=== PATIENT | female | born 1985 ===

== ENCOUNTER 2018-10-18 08:45 | Inpatient (IN) | payer OTHER ==
[2018-10-18] MEDS ORDERED: AMPICILLIN - 2 GM in SODIUM CHLORIDE 100 ML IVPB ONE (09:00)
--- NOTE | 2018-10-18 09:00 | HP ---
Past Medical History - Admission Chief Complaint: Cholestasis History of Present Illness: 33yo @ 36.6wks here for IOL for cholestasis- diagnosed 10/08 after labs showed elevated bile acids (24), elevated LFTs- patient noted pruritis of her hands and feet. Today no VB/LOF. No ctx. +FM. 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: Alzheimer's, CVA, Dementia, Migraine, Multiple Sclerosis, Peripheral Neuropathy, Parkinson's, Seizure, Syncope, TIA, Vertigo, Other Cardiovascular: No: AFIB, Aneurysm, Aortic Insufficiency, Aortic Stenosis, CAD, CHF, Deep Vein Thrombosis, HTN, Hyperlipdemia, MN, Mitral Insufficiency, Mitral Stenosis, Murmur, Pulmonary Hypertension, Other Pulmonary: No: Asthma, Bronchitis, Cancer, COPD, O2 Dependent, Pneumonia, Previously Intubated, Pulmonary Embolus, Pulmonary Fibrosis, Sleep Apnea, Other Gastrointestinal: No: Ascites, Cancer, Constipation, Crohn's Disease, Diverticulitis, Diverticulosis, Esophageal Varices, Gastritis, GERD, GI Bleed, Hemorrhoids, Hiatal Hernia, Inflamatory Bowel Disease, Irritable Bowel Disease, Pancreatitis, Peptic Ulcer Disease, Ulcerative Colitis, Other Hepatobiliary: No: Cirrhosis, Cholelithiasis, Cholecystitis, Choledocholithiasis , Hepatitis A, Hepatitis B, Hepatitis C, Other Renal/: No: Renal Failure, Renal Inusuff, BPH, Cancer, Hematuria, Hemodialysis , Neurogenic Bladder, Renal Calculi, UTI, Other Reproductive: No: Ectopic , Endometriosis, Fibroids, PID, Polycystic Ovary Syndrome, Postmenopausal, Other ...: 2 ...Para: 1 ...Term: 1 ...: 0 ... Weeks Gestation by Dates: 36.6 Heme/Onc: Yes: Anemia - Past Surgical History Past Surgical History: Yes: None Hx Myomectomy: No Hx Transabdominal Cerclage: No - Smoking History Smoking history: Never smoked Have you smoked in the past 12 months: No - Alcohol/Substance Use Hx Alcohol Use: No History of Substance Use: reports: None - Social History Usual Living Arrangement: Yes: With Spouse ADL: Independent History of Recent Travel: No Home Medications - Allergies Allergies/Adverse Reactions: Allergies Allergy/AdvReac Type Severity Reaction Status Date / Time No Known Allergies Allergy Verified 09/26/18 08:33 Physical Exam - Maternity Constitutional: Yes: Well Nourished, No Distress, Calm Eyes: Yes: WNL, Conjunctiva Clear, EOM Intact HENT: Yes: WNL, Atraumatic, Normocephalic Neck: Yes: WNL, Supple, Trachea Midline Cardiovascular: Yes: WNL, Regular Rate and Rhythm Breast(s): Yes: WNL - Abdominal Exam/OB Contractions: No Monitor Mode: External Heart Rate Location: [facility] Category: I Accelerations: Non-Uniform Decelerations: None - Vaginal Exam/OB Vaginal Bleediing: No Speculum Exam: No Dilatation (cm): 1 Effacement (%): 0 Amniotic Membrane Status: Intact Station: -3 - Physical Exam Edema: No Assessment/Plan 33yo @ 36.6wks here for IOL for cholestasis (8/ bile acids 24) Admit to L&D Cat I tracing Amp for GBS positive (urine) Durant bulb, AROM/pitocin augmentation Anticipate ERICKA Price MD
[2018-10-18 09:40] LABS: BASO % 0.8 % (0-2.0); HEMATOCRIT 31.5 % (32.4-45.2); HEMOGLOBIN 10.6 GM/dL (10.7-15.3); MCHC 33.7 g/dl (32.0-36.0); MEAN CELL VOLUME 86.2 fl (80-96); MEAN PLT VOLUME 8.4 fl (7.5-11.1); MONO % 4.6 % (3.8-10.2); NEUT % 65.6 % (42.8-82.8); PLATELET COUNT 291 K/MM3 (134-434); RBC 3.65 M/mm3 (3.60-5.2); RDW 14.5 % (11.6-15.6); WHITE BLOOD COUNT 4.8 K/mm3 (4.0-10.0)
[2018-10-18] MEDS ORDERED: AMPICILLIN SODIUM 2 GM VIAL ONE (09:51)
[2018-10-18] MEDS: DEXTROSE 5%-LACTATED RINGERS 1,000 ML IV SCH ×2 (09:55→18:45)
[2018-10-18 10:02] LABS: BLOOD UREA NITROGEN 8.8 mg/dL (7-18); CALCIUM 8.5 mg/dL (8.5-10.1); CREATININE 0.7 mg/dL (0.55-1.3); POTASSIUM 3.8 mmol/L (3.5-5.1)
[2018-10-18 10:06] LABS: INR 0.92 (0.83-1.09); PROTHROMBIN TIME (PATIENT) 10.9 SEC (9.7-13.0)
[2018-10-18 10:09] LABS: ACTIVATED PTT 27.5 SECONDS (25.2-36.5)
[2018-10-18] MEDS: OXYTOCIN 30 UNITS in 0.9% NS 30 UNIT/500 ML INFUS.BAG IVPB SCH (10:10)
--- NOTE | 2018-10-18 10:15 | PN ---
Progress Note (short form) - Note Progress Note: Durant bulb placed, 30cc. Long/1/-3 Start pitocin Cat Nataliia Price MD
[2018-10-18 10:36] VITALS: BMI 26.9
[2018-10-18] MEDS ORDERED: AMPICILLIN SODIUM 1 GM VIAL ONE ×3 (13:22→20:50)
[2018-10-18] MEDS: AMPICILLIN - 1 GM in SODIUM CHLORIDE 100 ML IVPB SCH ×3 (13:25→21:00)
--- NOTE | 2018-10-18 18:30 | PN ---
Ante-Partal Exam - Subjective Subjective: Patient is comfortable, desires to eat dinner. Risks and complications of induction of labor reiterated. All questions answered. Vital Signs: Vital Signs Temperature 98.2 F 10/18/18 12:00 Pulse Rate 53 L 10/18/18 17:00 Respiratory Rate 18 10/18/18 17:00 Blood Pressure 115/64 10/18/18 17:00 O2 Sat by Pulse Oximetry (%) Bleeding: No Headache: No Visual changes: No Right upper quadrant pain: No - Contractions Contractions: Yes Regularity: Regular Intensity: Unaware Monitor Mode: External - Exam during Labor Category: I Monitor Accelerations: Present Monitor Decelerations: None Exam: Vaginal Dilatation (cm): 3 Effacement (%): 20 Amniotic Membrane Status: Intact Presentation: Vertex (bedside sono performed, OP) Station: -3 Remarks: firm, midline. smith score is 3 - Assessment/Plan Assessment/Plan: 33 y/o @ 36.4wks, cholestasis of , reassuring status, S/P > 8 hrs of pitocin and cervical lopez. Patient is comfortable. -D/C pit -Dinner -Re-evaluate for cervical ripening
[2018-10-18] MEDS ORDERED: DINOPROSTONE 10 MG VAGINAL SUPPOSITORY VG ONE (19:55)
--- NOTE | 2018-10-18 20:37 | PN ---
Ante-Partal Exam - Subjective Subjective: Patient is doing well, not desiring pain control Vital Signs: Vital Signs Temperature 98.8 F 10/18/18 19:00 Pulse Rate 60 10/18/18 19:00 Respiratory Rate 18 10/18/18 19:00 Blood Pressure 102/63 10/18/18 19:00 O2 Sat by Pulse Oximetry (%) Bleeding: No Headache: No Visual changes: No Right upper quadrant pain: No - Contractions Contractions: Yes Regularity: Irregular Monitor Mode: External - Exam during Labor Heart Rate: 150 (reactive) Category: I Monitor Accelerations: Present Monitor Decelerations: None Exam: Vaginal (cervidil place in vaginal vault) Dilatation (cm): 3 Effacement (%): 30 Station: -3 - Assessment/Plan Assessment/Plan: IOL due to cholestasis of . -Cervidil in place -Continue management plan
[2018-10-18] MEDS ORDERED: SODIUM CHLORIDE 100 ML IVPB ONE (20:50)
[2018-10-19] MEDS: AMPICILLIN - 1 GM in SODIUM CHLORIDE 100 ML IVPB SCH ×5 (01:00→17:30)
[2018-10-19] MEDS ORDERED: AMPICILLIN SODIUM 1 GM VIAL ONE ×5 (01:48→16:56)
[2018-10-19] MEDS ORDERED: SODIUM CHLORIDE 100 ML IVPB ONE ×2 (01:48→04:50)
[2018-10-19] MEDS: DEXTROSE 5%-LACTATED RINGERS 1,000 ML IV SCH ×2 (03:30→11:30)
--- NOTE | 2018-10-19 08:35 | PN ---
Ante-Partal Exam - Subjective Subjective: Patient reports feeling mild cramping Vital Signs: Vital Signs Temperature 98.5 F 10/19/18 07:00 Pulse Rate 71 10/19/18 07:00 Respiratory Rate 18 10/19/18 07:00 Blood Pressure 109/60 10/19/18 07:00 O2 Sat by Pulse Oximetry (%) Bleeding: No Headache: No Visual changes: No Right upper quadrant pain: No - Contractions Contractions: Yes Regularity: Irregular Monitor Mode: External - Exam during Labor Category: I Monitor Accelerations: Present Monitor Decelerations: None Exam: Vaginal (cervidil removed and new on placed in vaginal vault, cervix is anterior) Dilatation (cm): 3 Effacement (%): 30 Amniotic Membrane Status: Intact Presentation: Vertex Station: -3 - Assessment/Plan Assessment/Plan: 33 y/o P1 @ 36.5wks, induction of labor due to cholestasis of , S/P cervical balloon and pitocin, Cervidil removed and replaced. Reassuring status and stable maternal condition. -Continue induction -patient signed out to covering [facility] attending
[2018-10-19] MEDS ORDERED: DINOPROSTONE 10 MG VAGINAL SUPPOSITORY VG ONE (08:47)
[2018-10-19] MEDS ORDERED: GENTAMICIN SO4 80 MG/2 ML VIAL ONE (12:29)
[2018-10-19] MEDS ORDERED: ACETAMINOPHEN 325 MG TABLET (FP) ONE (12:29)
[2018-10-19] MEDS: GENTAMICIN 80 MG PREMIXED IVPB 80 MG/100 ML BAG IVPB SCH ×2 (12:35→17:00)
--- NOTE | 2018-10-19 13:40 | PN ---
Progress Note (short form) - Note Progress Note: 12 20 pm , cx 4 cm 80 vx -1 , temp 100.1 arom, clear fhr 160, cat 1, on ampicillin, gentamycin added
[2018-10-19] MEDS ORDERED: ACETAMINOPHEN 325 MG TABLET (FP) PO PRN ×2 (13:45→18:17)
[2018-10-19] MEDS: OXYTOCIN 30 UNITS in 0.9% NS 30 UNIT/500 ML INFUS.BAG IVPB SCH (14:05)
[2018-10-19] MEDS ORDERED: BUTORPHANOL TARTRATE 1 MG/ML VIAL ONE ×2 (15:40)
[2018-10-19] MEDS ORDERED: PROMETHAZINE HCL 25 MG/1 ML VIAL ONE (15:40)
[2018-10-19] MEDS ORDERED: BUTORPHANOL TARTRATE 2 MG/ML VIAL IVPB ONE (16:00)
[2018-10-19] MEDS ORDERED: PROMETHAZINE HCL 25 MG/1 ML VIAL IVPB ONE (16:00)
--- NOTE | 2018-10-19 16:55 | PN ---
Progress Note (short form) - Note Progress Note: cx 8 cm, 100 vx 0, mr, fhr cat 1, anticipate vaginal delivery soon afebrile
[2018-10-19] MEDS ORDERED: OXYTOCIN 20 UNITS in 0.9% NS 20 UNIT/1,000 ML INFUS.BAG IV ONE (17:43)
[2018-10-19] MEDS ORDERED: LIDOCAINE HCL 1% PRESERVATIVE FREE - 30ML VIAL ONE (17:44)
[2018-10-19] MEDS ORDERED: BENZOCAINE 28 GM HEMORRHOIDAL OINTMENT TP PRN (18:17)
[2018-10-19] MEDS ORDERED: METHYLERGONOVINE MALEATE 0.2 MG/1 ML AMP IM PRN (18:17)
[2018-10-19] MEDS ORDERED: WITCH HAZEL 50% (TUCKS) 40 PAD/JAR PAD TP PRN (18:17)
[2018-10-19] MEDS ORDERED: BENZOCAINE 20% 57 GM BOTTLE TP PRN (18:17)
[2018-10-19] MEDS ORDERED: BISACODYL 10 MG SUPP.RECT RC PRN (18:17)
[2018-10-19] MEDS ORDERED: IBUPROFEN 600 MG TABLET (FP) PO PRN (18:17)
[2018-10-19] MEDS ORDERED: OXYTOCIN 20 UNITS in 0.9% NS 20 UNIT/1,000 ML INFUS.BAG IV SCH (18:30)
[2018-10-19] MEDS ORDERED: D5W-LR W/ 20 UNITS OXYTOCIN 20 UNIT/1,000 ML INFUS.BAG IV SCH (18:30)
--- NOTE | 2018-10-19 20:13 | PN ---
Delivery - Delivery Vaginal Delivery: No Problems (cx fully dilated , head delivered , nasopharynx suctioned , cord around neck once , clamped and cut , ant . post. 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
[2018-10-19] MEDS: FERROUS SO4 325 MG TABLET (FP) PO SCH (22:06)
--- NOTE | 2018-10-20 08:01 | PN ---
Post Progress Note - Subjective Subjective: no c/o pain sometimes pain while voiding c/o perineal soreness Post Day: 1 Type of Delivery: Vital Signs: Vital Signs Temperature 98.4 F 10/20/18 06:00 Pulse Rate 64 10/20/18 06:00 Respiratory Rate 18 10/20/18 06:00 Blood Pressure 104/65 10/20/18 06:00 O2 Sat by Pulse Oximetry (%) Breast Exam: Yes: Soft, Other (plans to BF ). No: Engorged Uterus: Yes: Fundus Firm, Fundus below umbilicus, Non-tender Lochia: Yes: Rubra Lochia, amount: Small Extremities: Yes: Calves non-tender Perineum: Yes: Episiotomy (healing ) Activity: Ambulating - Labs Labs: CBC WBC 4.8 K/mm3 (4.0-10.0) 10/18/18 09:10 RBC 3.65 M/mm3 (3.60-5.2) 10/18/18 09:10 Hgb 10.6 GM/dL (10.7-15.3) L 10/18/18 09:10 Hct 31.5 % (32.4-45.2) L 10/18/18 09:10 MCV 86.2 fl (80-96) 10/18/18 09:10 MCH 29.0 pg (25.7-33.7) 10/18/18 09:10 MCHC 33.7 g/dl (32.0-36.0) 10/18/18 09:10 RDW 14.5 % (11.6-15.6) D 10/18/18 09:10 Plt Count 291 K/MM3 (134-434) 10/18/18 09:10 MPV 8.4 fl (7.5-11.1) 10/18/18 09:10 Absolute Neuts (auto) 3.2 K/mm3 (1.5-8.0) 10/18/18 09:10 Neutrophils % 65.6 % (42.8-82.8) 10/18/18 09:10 Lymphocytes % 28.0 % (8-40) D 10/18/18 09:10 Monocytes % 4.6 % (3.8-10.2) 10/18/18 09:10 Eosinophils % 1.0 % (0-4.5) 10/18/18 09:10 Basophils % 0.8 % (0-2.0) 10/18/18 09:10 Nucleated RBC % 0 % (0-0) 10/18/18 09:10 Problem List - Problems (1) Encounter for care and examination after delivery Code(s): Z39.2 - ENCOUNTER FOR ROUTINE FOLLOW-UP Assessment/Plan stable plan ct pp care pp cbc pending discharge tomorrow
[2018-10-20 09:19] LABS: BASO % 0.4 % (0-2.0); EOS % 0.1 % (0-4.5); HEMATOCRIT 32.4 % (32.4-45.2); HEMOGLOBIN 10.6 GM/dL (10.7-15.3); LYMPH % 13.8 % (8-40); MCH 28.7 pg (25.7-33.7); MCHC 32.8 g/dl (32.0-36.0); MEAN CELL VOLUME 87.4 fl (80-96); MEAN PLT VOLUME 8.7 fl (7.5-11.1); MONO % 3.9 % (3.8-10.2); NEUT % 81.8 % (42.8-82.8); PLATELET COUNT 246 K/MM3 (134-434); RBC 3.71 M/mm3 (3.60-5.2); WHITE BLOOD COUNT 11.1 K/mm3 (4.0-10.0)
[2018-10-20] MEDS: FERROUS SO4 325 MG TABLET (FP) PO SCH ×2 (10:09→21:39)
[2018-10-20] MEDS: PRENATAL VITAMINS W/ FOLIC ACID TABLET (FP) PO SCH (10:09)
[2018-10-20 14:14] VITALS: TEMP 98.3
[2018-10-20] MEDS ORDERED: SENNOSIDES/DOCUSATE COMBO (SENNA PLUS) TABLET (UD) PO PRN (22:00)
--- NOTE | 2018-10-21 07:56 | DS ---
Physical Examination Vital Signs: Vital Signs Temperature 98.3 F 10/20/18 22:00 Pulse Rate 72 10/20/18 22:00 Respiratory Rate 18 10/20/18 22:00 Blood Pressure 95/54 L 10/20/18 22:00 O2 Sat by Pulse Oximetry (%) Constitutional: Yes: Well Nourished, No Distress, Calm Eyes: Yes: WNL, Conjunctiva Clear, EOM Intact HENT: Yes: WNL, Atraumatic, Normocephalic Neck: Yes: WNL, Supple, Trachea Midline Cardiovascular: Yes: WNL, Regular Rate and Rhythm Respiratory: Yes: WNL, Regular, CTA Bilaterally Gastrointestinal: Yes: WNL, Normal Bowel Sounds Musculoskeletal: Yes: WNL Extremities: Yes: WNL Edema: No Integumentary: Yes: WNL Neurological: Yes: WNL, Alert, Oriented ...Motor Strength: WNL Psychiatric: Yes: WNL Labs: CBC, BMP 10/20/18 08:47 10/18/18 09:10 Discharge Summary Reason For Visit: INDUCTION OF LABOR Current Active Problems Encounter for care and examination after delivery (Acute) Procedures: Principal: Hospital Course: Patient presented for IOL for cholestasis She had an uncomplicated She met all milestones She was discharged home in stable condition Dorina Price MD Condition: Stable - Instructions Diet, Activity, Other Instructions: Regular Diet Follow up in 4-[address] Barry for your visit Referrals: Rufino Barry MD [Staff Physician] - Disposition: HOME - Home Medications Comprehensive Discharge Medication List: Ambulatory Orders Vits96/Iron Fum/Folic [ Tablet] 1 tab PO DAILY 10/18/18 Ibuprofen 600 mg PO Q6H PRN #30 tablet 10/20/18
[2018-10-21] MEDS: FERROUS SO4 325 MG TABLET (FP) PO SCH (10:15)
[2018-10-21] MEDS: PRENATAL VITAMINS W/ FOLIC ACID TABLET (FP) PO SCH (10:15)
[2018-10-21 10:45] VITALS: BP 90/63; PULSE 81
== END 2018-10-21 13:21 | disposition home or self-care (01) | DRG 560 ==
LOC: JLDR 08:45 → J3W 10-19 20:50
PROVIDERS: ADMIT Obstetrics & Gynecology; ATTEND Obstetrics & Gynecology
PROC: 3E033VJ Introduction of Other Hormone into Peripheral Vein, Percutaneous Approach (ICD-10-PCS; 2018-10-18)
PROC: 3E0P7VZ Introduction of Hormone into Female Reproductive, Via Natural or Artificial Opening (ICD-10-PCS; 2018-10-18)
PROC: 10E0XZZ Delivery of Products of Conception, External Approach (ICD-10-PCS; principal; 2018-10-19)
PROC: 0HQ9XZZ Repair Perineum Skin, External Approach (ICD-10-PCS; 2018-10-19)
DX: O60.13X0 Preterm labor second trimester with preterm delivery third trimester, not applicable or unspecified (principal); K83.1 Obstruction of bile duct; O26.62 Liver and biliary tract disorders in childbirth; O99.824 Streptococcus B carrier state complicating childbirth; O69.81X0 Labor and delivery complicated by cord around neck, without compression, not applicable or unspecified; O70.0 First degree perineal laceration during delivery; Z3A.36 36 weeks gestation of pregnancy; Z37.0 Single live birth
CPT/HCPCS: 36415; 36600; 59409; 80048; 82803; 84450; 84460; 85025; 85610; 85730; 86593; 86850; 86900; 86901; 87340

== ENCOUNTER 2018-10-23 11:51 | Emergency (ER) | payer OTHER ==
[2018-10-23 11:57] VITALS: BP 97/58; PULSE 66; TEMP 98.7; BMI 26.5
--- NOTE | 2018-10-23 13:08 | PDOC ---
History of Present Illness - General Chief Complaint: Pain Stated Complaint: SANJUANITA BREAST PAIN Time Seen by Provider: 10/23/18 12:19 History Source: Patient Exam Limitations: No Limitations - History of Present Illness Initial Comments: 10/23/18 13:03 33 yo F w/ no sig PMHx, PPD # 4, discharged 2 days ago, comes in c/o difficulty lactating. She says that her breasts are really engorged and painful and she does not know what to do. No fever, no chills, no NVD. She tried using her breast pump, tried warm compresses without success. No other complaints today, no cough, no abdominal pain, no urinary symptoms. Past History - Past Medical History Allergies/Adverse Reactions: Allergies Allergy/AdvReac Type Severity Reaction Status Date / Time No Known Allergies Allergy Verified 10/23/18 11:57 Home Medications: Ambulatory Orders Vits96/Iron Fum/Folic [ Tablet] 1 tab PO DAILY 10/18/18 Ibuprofen 600 mg PO Q6H PRN #30 tablet 10/20/18 Asthma: No Cancer: No Cardiac Disorders: No COPD: No Diabetes: No HTN: No Seizures: No Thyroid Disease: No - Suicide/Smoking/Psychosocial Hx Smoking History: Never smoked Have you smoked in the past 12 months: No Hx Alcohol Use: No Drug/Substance Use Hx: No Hx Substance Use Treatment: No Review of Systems - Review of Systems Able to Perform ROS?: Yes Constitutional: No: Chills, Fever, Malaise, Night Sweats HEENTM: No: Eye Pain, Recent change in vision, Throat Pain Respiratory: No: Cough, Shortness of Breath Cardiac (ROS): No: Chest Pain, Palpitations, Chest Tightness ABD/GI: No: Diarrhea, Nausea, Vomiting, Abdominal cramping : No: Dysuria, Hematuria Musculoskeletal: No: Back Pain Integumentary: No: Rash Neurological: No: Headache, Numbness, Dizziness Psychiatric: No: Change in Appetite Endocrine: No: Unexplained Weight Loss *Physical Exam - Vital Signs Last Vital Signs Temp Pulse Resp BP Pulse Ox 98.7 F 66 18 97/58 L 100 10/23/18 11:55 10/23/18 11:55 10/23/18 11:55 10/23/18 11:55 10/23/18 11:55 - Physical Exam General Appearance: Yes: Nourished. No: Apparent Distress HEENT: positive: RUPA, Normal ENT Inspection, Normal Voice. negative: Pale Conjunctivae, Scleral Icterus (R), Scleral Icterus (L) Neck: positive: Supple. negative: Decreased range of motion, Tender midline Respiratory/Chest: positive: Lungs Clear, Normal Breath Sounds, Other ( Bilateral breasts engorged and tender. R nipple slightly cracked, no signs of mastitis. No erythema/warmth of breast tissue.). negative: Respiratory Distress , Accessory Muscle Use Cardiovascular: positive: Regular Rhythm, Regular Rate Gastrointestinal/Abdominal: positive: Normal Bowel Sounds, Soft. negative: Tender Musculoskeletal: positive: Normal Inspection. negative: CVA Tenderness, Decreased Range of Motion Extremity: positive: Normal Capillary Refill, Normal Inspection, Normal Range of Motion. negative: Tender, Pedal Edema Integumentary: positive: Normal Color, Dry. negative: Jaundice, Rash Neurologic: positive: Fully Oriented, Alert, Normal Mood/Affect Medical Decision Making - Medical Decision Making 10/23/18 13:07 33 yo F w/ difficulty w/ . I called post , spoke to Rena, one of the nurses who says to send pt up to the floor, she will try to help her out. Pt discharged to post floor *DC/Admit/Observation/Transfer Diagnosis at time of Disposition: Inadequate - Discharge Dispostion Disposition: HOME Condition at time of disposition: Stable - Referrals - Patient Instructions - Post Discharge Activity
== END 2018-10-23 13:49 | disposition home or self-care (01) ==
LOC: JER 11:51
DX: O92.29 Other disorders of breast associated with pregnancy and the puerperium (principal); O92.79 Other disorders of lactation; O92.13 Cracked nipple associated with lactation; Z37.9 Outcome of delivery, unspecified
CPT/HCPCS: 99281-25